=== PATIENT | male | born 1975 | race Caucasian/White ===

== ENCOUNTER 2016-07-16 16:16 | Inpatient (IN) | payer MEDICARE, MEDICAID ==
[~2016-07-16] VITALS: Ht 177.8 cm; Wt 102.6 kg
[~2016-07-16 16:16] MED LIST: CALCIUM 500 +1 EACH PO; CARNITOR330 MG PO; DEPAKOTE500 MG PO; EUCERIN CREME120 GM TP; FLONASE ALLER15.8 ML NS; LAMICTAL150 MG PO; LASIX40 M1 PO; LORTAB 5-325 M1 EACH PO; METRONIDAZOLE45 G1 TP; PRILOSEC DPS20 MG PO; QUESTRAN PWD378 GM PO; SYSTANE GEL EYE10 ML OU; TEFLARO600 MG IV; TYLENOL DP650 MG/20. PO; ZYRTEC DPS10 MG PO; [UNRECOGNIZED DRUG - OTHER] PO
[2016-07-23] MEDS ORDERED: ATIVAN-DPS1 MG PO (11:13)
[2016-07-23] MEDS ORDERED: MIRALAX PACKET17 GM PO (11:14)
[2016-07-23] MEDS ORDERED: LEVAQUIN DPS500 MG PO (11:14)
[2016-07-23] MEDS ORDERED: LEVOTHYROXINE25 MCG PO (11:14)
[2016-07-23] MEDS ORDERED: DAILY MULTIPLE1 EAC1 PO (11:25)
--- NOTE | 2016-07-24 19:06 | ER ---
ADMIT: 07/16/2016 RM/LOC: 412 [facility] MR#: [id number] 26[address] [facility] [address], [place] [address] DIS[address]I [address] [place] [address] Emergency Room Report SEX: M AGE: 41 : 1975 DATE: 07/16/2016 HISTORY OF PRESENT ILLNESS: The patient is a 41-year-old male, with some history of learning disability was brought by the mother because allegedly, the patient was diagnosed with influenza last week, was febrile, without any specimen or lab works and they noticed that with Tamiflu and other medications, the patient still has fever and does not feel good. PHYSICAL EXAMINATION: VITAL SIGNS: In the ER, the patient was tachycardic, the patient was febrile to 101, blood pressure systolic was 95, the patient was started on IV fluid, temperature was 101, and heart rate was 110, O2 saturation on room air was 96%. GENERAL: The patient was in moderate to severe distress because of the lower abdominal pain. The pain was mostly in the right lower quadrant and suprapubic area. HEENT: In the head and neck, there is no erythema in the oropharynx. Trachea is midline. Pupils 3 mm, reactive to light bilaterally. CHEST: Clear to auscultation. Heart: Normal cardiac sounds. ABDOMEN: Has some tenderness in right lower quadrant and suprapubic area without any rebound or guarding. There is no CVA tenderness. EXTREMITIES: There is no swelling or tenderness in the lower extremities. LABORATORY DATA: The patient was negative for influenza A and B. Lactic level was 2.1. The patient was started already on sepsis workup. The white count was 18.2 with hemoglobin of 15.2, and platelet of 164,000 with a neutrophil of 15.5, a procalcitonin was 4.7 with lactic acid of 2.1, anion gap was 15, and bicarb was 22. The urine was positive for 29 wbc and 6 rbc. IMAGING: CT of abdomen and pelvis was suggestive of thickened bladder wall without any free fluid, was also suggestive of normal appendix. EKG was suggestive of sinus tachycardia with prolonged QT to 516. The patient received IV fluid, pain was controlled. The patient was admitted for further followups and treatments with the diagnosis of urinary tract infection for which the patient was started on Zosyn in the ER, sepsis syndrome, and hyperpyrexia. Antoine Sloan MD/ bonifacio JOB #: [id number] CC: Jose Luis Valdes MD, Attending Physician Jose Luis Valdes MD, Family Physician
--- NOTE | 2016-08-02 19:48 | HP ---
ADMIT: 07/16/2016 RM/LOC: 412 [facility] MR#: [id number] 26[address] [facility] [address] [place], [place] [address] DISHA KEI Ken [address] [place] [address] History and Physical SEX: M AGE: 41 : 1975 DATE OF SERVICE: CHIEF COMPLAINT: Fever, weakness, abdominal pain. HISTORY OF PRESENT ILLNESS: The patient is a very pleasant 41-year-old male, who was sick with upper respiratory infection last week, was treated for influenza even though he did not have testing done. He was getting a little bit better, but then over the last 2-3 days, he started having decreased energy and appetite, was not acting himself. Today, he said he did not feel well and was having body aches all over. He also had a fever, so patient was brought into the ER for workup. The patient was negative for pneumonia. He was complaining of abdominal pain and body aches when he arrived to the ER. The patient had a negative CT abdomen for appendix or SBO, also had a negative chest x-ray. Workup but did show a positive UA for UTI. PAST MEDICAL HISTORY: Mental retardation, hyperthyroidism, seizures. PAST SURGICAL HISTORY: None. ALLERGIES: ROCEPHIN, RITALIN. MEDICATIONS: See list. FAMILY HISTORY: Noncontributory. REVIEW OF SYSTEMS: GENERAL: Positive for fever, the highest 101, body aches. No confusion but does have baseline disability. HEENT: No visual changes. No sore throat. No rhinorrhea. HEART: Did not have any chest pain, shortness of breath, or palpitations. LUNGS: Did not have any coughing, wheezing, or shortness of breath. ABDOMEN: Positive abdominal pain. He does have a chronic history of diarrhea. He did not have any nausea and vomiting. EXTREMITIES: Mother says that he does have a history of cellulitis, but at this time, there are no signs of cellulitis or erythema. No warmth. No swelling. NEURO: Again, no confusion. No stroke-like or seizure-like activity. The patient does have a history of seizures, however. LABORATORY DATA: Workup in the ER showed an elevated white blood cell count of 18.2, hemoglobin 15.2, platelets 164. Blood cultures are pending. Flu A and B were negative. Lactic acid originally was 2.1, but then 4 hours later bumped up to 3.1. PT, PT/INR is 12.7, 1.21. Electrolytes, sodium is low at 139, potassium is low at 3.2, chloride is 105, CO2 is 22, BUN is 12, creatinine 0.9, glucose is 91. Phosphorus was low at 1.5. Mag was low at 1.7. Cardiac enzymes were normal. Procalcitonin was elevated at 4.71. Abdomen and pelvis CT showed no signs of acute appendicitis or hydronephrosis. No small bowel obstruction. However, his bladder alexander were thickened showing some signs of inflammation. Chest x-ray is normal except for some peribronchial cuffing. UA showed 2+ blood, 3+ leukocyte esterase, no ADMIT: 07/16/2016 RM/LOC: 412 [facility] MR#: [id number] [address] [address] KEI GAUTHIER [address] [place] [address] History and Physical SEX: M AGE: 41 : 1975 nitrites. PHYSICAL EXAMINATION: VITAL SIGNS: Most recent vital signs recorded in the ER was a heart rate of 88, respirations of 17, blood pressure of 108/67, MAP of 74, and SaO2 is 100% on room air. The patient was having some lower blood pressures. Blood pressure systolic range was 83 to 108, 51 to 67 diastolic. GENERAL: No acute distress. Alert and oriented x3. He does have some acute disability. HEENT: Normocephalic and atraumatic. Moist mucous membranes. Extraocular muscles are intact. Pupils equal, round, and reactive. HEART: Regular rate and rhythm. No murmur. LUNGS: Clear to auscultation bilaterally. Normal effort. No rhonchi or wheezing. ABDOMEN: Soft. Did have decreased bowel sounds. It was tender. Did have some tenderness and generalized over the abdomen. No hepatosplenomegaly. EXTREMITIES: Show no signs of edema, erythema, or acute cellulitis. ASSESSMENT AND PLAN: 1. Sepsis secondary to urinary tract infection. Continue Zosyn and IV fluids. 2. Urinary tract infection. 3. Low blood pressures. We will continue to monitor and replace with IV fluids. 4. Intellectual disability. 5. Hypothyroidism. 6. Seizure history. We will treat the patient with IV fluids and antibiotics at this time. We will trend the patient's lactic acid. If continues to increase, we will consider transferring the patient to a different unit. He has other baseline comorbidities as appropriate. Desirae Gordon MD Resident / Jose Luis Valdes MD / bonifacio JOB #: [id number] CC: Jose Luis Valdes, Attending Physician Jose Luis Valdes, Family Physician
--- NOTE | 2016-09-30 07:29 | DS ---
ADMIT: 07/16/2016 RM/LOC: 412 [facility] MR#: [id number] [address] [facility] [address] [place], [place] [address] KEI GAUTHIER [address] [place] [address] Discharge Summary SEX: M AGE: 41 : 1975 ADMISSION DATE: 07/16/2016 DISCHARGE DATE: 07/22/2016 FINAL DIAGNOSES: 1. UTI (urinary tract infection). 2. Escherichia coli sepsis secondary to number one. 3. Hypokalemia. 4. Hypomagnesemia. 5. Mental disability. 6. Hypothyroidism. 7. Ileus secondary to number one. REASON FOR ADMISSION: This is a 41-year-old, mentally disabled gentleman, who presented with fever, weakness and abdominal pain for the last week, worse over the last 2-3 days with decreased energy and decreased appetite. Workup revealed UTI and concerns for possible sepsis. Therefore, he was admitted for further workup and stabilization. HOSPITAL COURSE: He was admitted on 07/16/2016. His potassium was low, that was replaced IV and orally. Rehydrated with IV normal saline. Mag sulfate was also replaced. His lactic acid was followed. Zosyn was ordered IV. On 07/17, we did add some K-Phos as his phosphorus was also low. Started some MiraLAX for abdominal discomfort and bloating. Was given another bolus of IV normal saline. Enoxaparin was used for DVT prophylaxis. On 07/18, we discontinued his Levaquin, we decreased his IV fluids to TKO as he was improving. He was complaining of some chest pain worse with cough. On 07/19, he still complained of some abdominal discomfort and a lot of cough. We did do a perf series we added K-pad to his chest and abdomen p.r.n. and Phenergan with codeine was ordered. We did add back Levaquin to broaden her antibiotic coverage. On 07/20, his temps were down, he had an okay night. His only new complaint was a sore throat. Still not had significant bowel movements so we did increase his MiraLAX to t.i.d. Got him up, ambulated him, got him up to the chair. He was transferred to telemetry. On 07/21, still complained of abdominal pain, but did have a large bowel movement. His electrolytes were normal. On 07/22, he was doing better, no pain, eating better and felt stable for discharge. DISCHARGE MEDICATIONS: Discharge medications include: 1. Caltrate 600 mg b.i.d. 2. Carnitor 330 mg t.i.d. 3. Depakote 500 mg t.i.d. 4. Lamictal 150 mg b.i.d. 5. Lasix 40 mg daily. 6. Levaquin 500 mg daily. 7. MiraLax 17 g t.i.d. 8. Questran 4 g q.12 hours. 9. Tofranil 50 mg every night. 10.Flonase 2 sprays daily. 11.Natural tears t.i.d. ADMIT: 07/16/2016 RM/LOC: 412 [facility] MR#: [id number] [address] [address] KEI GAUTHIER [address] [place] [address] Discharge Summary SEX: M AGE: 41 : 1975 12.MetroGel 0.75% topically to face daily. 13.Tylenol 325 mg two q.4 hours p.r.n. 14.Eucerin p.r.n. 15.Prilosec 20 mg daily. 16.Lamictal 100 mg b.i.d. 17.Zyrtec 10 mg at bedtime. 18.Calcium vitamin D one tab b.i.d. 19.Multivitamin daily. 20.Systane Ultra one drop t.i.d. 21.Lasix 40 mg daily. 22.Ativan 1 mg p.r.n. before dental appointments. 23.Levothyroxine 25 mcg daily. DISCHARGE INSTRUCTIONS: Follow up with Dr. Valdes in 7-10 days or sooner if needed. Jose Luis Valdes MD/ jeanneg JOB #: [id number] CC: Jose Luis Valdes MD, Attending Physician Jose Luis Valdes MD, Family Physician
== END 2016-07-22 15:00 | disposition home or self-care (01) | DRG 872 ==
LOC: ER 16:16 → 4PCU 20:30
PROVIDERS: ADMIT Family Medicine
DX: A41.51 Sepsis due to Escherichia coli [E. coli] (principal); R56.9 Unspecified convulsions; K56.7 Ileus, unspecified; N39.0 Urinary tract infection, site not specified; R00.0 Tachycardia, unspecified; F79 Unspecified intellectual disabilities; K59.00 Constipation, unspecified; R07.89 Other chest pain; J40 Bronchitis, not specified as acute or chronic; E03.9 Hypothyroidism, unspecified; E87.6 Hypokalemia; E83.42 Hypomagnesemia; B96.20 Unspecified Escherichia coli [E. coli] as the cause of diseases classified elsewhere